=== PATIENT | female | born 1960 | race American Indian/Alaskan Native ===

== ENCOUNTER 2017-11-15 16:41 | Emergency (ER) | payer SELFPAY ==
[2017-11-15] MEDS ORDERED: ASPIRIN PO ONE (16:57)
[2017-11-15 17:15] LABS: Basophils # (Auto) 0.1 K/mm3 (0.0-0.1); Basophils % (Auto) 0.9 % (0.0-1.8); Eosinophils # (Auto) 0.1 K/mm3 (0.0-0.4); Hematocrit 37.1 % (30.3-42.9); Hemoglobin 12.9 gm/dl (10.1-14.3); Lymphocytes # (Auto) 2.2 K/mm3 (1.2-5.4); Lymphocytes % (Auto) 31.5 % (13.4-35.0); Mean Corpuscular HGB Conc 35 % (30-34); Mean Corpuscular Hemoglobin 29 pg (28-32); Mean Corpuscular Volume 84 fl (79-97); Monocytes # (Auto) 0.3 K/mm3 (0.0-0.8); Monocytes % (Auto) 4.2 % (0.0-7.3); Platelet Count 211 K/mm3 (140-440); Red Blood Count 4.42 M/mm3 (3.65-5.03); Red Cell Distribution Width 14.5 % (13.2-15.2)
[2017-11-15 17:30] LABS: BUN/Creatinine Ratio 15; Blood Urea Nitrogen 15 mg/dL (7-17); Calcium 9.2 mg/dL (8.4-10.2); Hemolysis Index 4
[2017-11-15] MEDS ORDERED: TYLENOL PO ONE (21:46)
[2017-11-15] MEDS ORDERED: NITROSTAT SL ONE (21:46)
[2017-11-15] MEDS ORDERED: APRESOLINE IV ONE (21:46)
--- NOTE | 2017-11-15 22:16 | XRay Report ---
FINAL REPORT PROCEDURE: XR CHEST 1V AP TECHNIQUE: Chest radiograph anteroposterior view. CPT 42101 HISTORY: dyspnea COMPARISON: No prior studies are available for comparison. FINDINGS: Heart: Normal. Mediastinum/Vessels: Normal. Lungs/Pleural space: No infiltrate, effusion, or pneumothorax. Bony thorax: No acute osseous abnormality. Life support devices: None. IMPRESSION: No radiographic evidence of acute cardiopulmonary abnormality.
--- NOTE | 2017-11-15 22:57 | Cat Scan Report ---
FINAL REPORT PROCEDURE: CT ANGIO CHEST TECHNIQUE: Computerized tomographic angiography of the chest was performed after the IV injection of iodinated nonionic contrast including image processing. The image data was postprocessed using 2-dimensional multiplanar reformatted (MPR) and 3-dimensional (MIP and/or volume rendered) techniques. HISTORY: chest pain COMPARISON: No prior studies are available for comparison. FINDINGS: Heart and pericardium: Heart is enlarged. No pericardial effusion or thickening. Thoracic aorta: No aneurysm or dissection. Pulmonary vasculature: Normal. Lymph nodes: 10 millimeter short axis subcarinal lymph node. Lungs: Normal. Pleural space: No effusion, thickening, or pneumothorax. Musculoskeletal structures: No significant abnormality. Upper abdominal structures: No significant abnormality. IMPRESSION: No evidence of pulmonary emboli
[2017-11-15] MEDS ORDERED: PROTONIX IV ONE (23:27)
--- NOTE | 2017-11-16 00:04 | Emergency Department Report ---
HPI - General Chief Complaint: Chest Pain Time Seen by Provider: 11/15/17 20:14 - HPI HPI: The patient is a 57-year-old female with a history of hypertension, whom presents for evaluation of chest pain. The patient reports on and off chest pain for the past 6 days, sharp in quality, radiating from the right side of the chest to the left chest, that sounds radiating to the right and left neck, jaw, and arms. She states that her pain has been moderate in severity and is exacerbated with movement. The patient denies fever, neck pain, parasthesias, dyspnea, cough, hemoptysis, palpitations, dizziness, syncope, unilateral leg swelling, calf muscle pain. Patient also denies cocaine or other stimulant use , history of DVT or PE, recent immobilization, or history of cancer. ED Past Medical Hx - Past Medical History Hx Hypertension: Yes - Surgical History Additional Surgical History: HERNIA X2 TUBAL HEMRRHOIDS - Social History Smoking Status: Never Smoker Substance Use Type: Alcohol - Medications Home Medications: Home Medications Medication Instructions Recorded Confirmed Last Taken Type Atenolol 50 PO DAILY 11/15/17 Unknown History Omeprazole Magnesium [PriLOSEC Otc] 20 mg PO QDAY #14 tablet. 11/16/17 Unknown Rx metroNIDAZOLE [Flagyl] 500 mg PO Q12HR #14 tab 11/16/17 Unknown Rx ED Review of Systems ROS: Stated complaint: CHEST PAIN Other details as noted in HPI Constitutional: denies: fever ENT: denies: throat or neck pain Respiratory: denies: cough, shortness of breath Cardiovascular: reports chest pain Endocrine: denies unexplained weight loss or gain Gastrointestinal: denies: abdominal pain, nausea Genitourinary: denies: dysuria Musculoskeletal: denies: leg swelling Skin: denies: rash Neurological: denies: headache Hematological/Lymphatic: denies: easy bleeding or easy bruising Psych: denies sadness or hopelessness Physical Exam - Physical Exam Vital Signs: Vital Signs 11/15/17 11/15/17 11/15/17 16:52 18:03 19:29 Temperature 98.8 F 98.3 F Pulse Rate 67 63 64 Respiratory 18 16 20 Rate Blood Pressure 159/102 Blood Pressure 150/91 149/95 [Left] O2 Sat by Pulse 100 99 97 Oximetry 11/15/17 11/15/17 21:07 23:14 Temperature Pulse Rate 63 66 Respiratory 20 18 Rate Blood Pressure Blood Pressure 156/99 137/95 [Left] O2 Sat by Pulse 95 Oximetry Physical Exam: General: well-nourished, well-developed, no acute distress Head: Normocephalic, atraumatic Eyes: normal sclera ENT: Mucous membranes are pink and moist Neck: trachea midline, neck supple, No neck stiffness, no cervical adenopathy Respiratory: Breath sounds equal bilaterally, no wheezing, rales, or rhonchi Cardio: S1 and S2 present, no murmurs, rubs, gallops, capillary refill is brisk Abdomen: Normoactive bowel sounds, soft abdomen, no rigidity, no guarding or rebound tenderness Chest WALL/Back: No tenderness to palpation of the chest wall, no CVA tenderness with percussion Musc: No pitting edema Skin: No rash Neuro: no facial drooping, normal speech Psych: Normal affect ED Course Vital Signs 11/15/17 11/15/17 11/15/17 16:52 18:03 19:29 Temperature 98.8 F 98.3 F Pulse Rate 67 63 64 Respiratory 18 16 20 Rate Blood Pressure 159/102 Blood Pressure 150/91 149/95 [Left] O2 Sat by Pulse 100 99 97 Oximetry 11/15/17 11/15/17 21:07 23:14 Temperature Pulse Rate 63 66 Respiratory 20 18 Rate Blood Pressure Blood Pressure 156/99 137/95 [Left] O2 Sat by Pulse 95 Oximetry ED Medical Decision Making - Lab Data Result diagrams: 11/15/17 17:03 11/15/17 17:03 - Medical Decision Making The patient was seen and examined by myself. The patient is placed on a terminal supervisor and continuous pulse ox. On initial evaluation, the patient was found to be in no distress. EKG was negative for findings suggestive of acute cardiac infarct. Labs and imaging are obtained. The patient was given pain medicine. Chest x-ray is negative for pneumothorax, focal consolidation, pulmonary vascular congestion, pleural effusion, or other obvious acute cardiopulmonary disease process. Lab results were non-concerning including levels of troponin, WBC, hemoglobin, hematocrit, electrolytes, renal function. The patient was reevaluated and reported that their symptoms were markedly improved. As the patient has a ESTEFANIA risk score less than 2, and a CT angiogram of the chest negative for pulmonary embolism or aortic injury, the patient is at low risk of ACS, pulmonary emboli, or Aortic dissection etiology of her symptoms. The patient is stable for discharge with outpatient follow-up. The patient is given follow-up and return instructions. The patient expressed understanding and agreed with the plan. The patient is discharged in stable condition. Critical care attestation.: If time is entered above; I have spent that time in minutes in the direct care of this critically ill patient, excluding procedure time. ED Disposition Clinical Impression: Acute chest pain, Hypertensive urgency Disposition: TO HOME OR SELFCARE Is pt being admited?: No Does the pt Need Aspirin: No Condition: Stable Instructions: Chest Pain (ED), Hypertension (ED) Prescriptions: metroNIDAZOLE [Flagyl] 500 mg PO Q12HR #14 tab Omeprazole Magnesium [PriLOSEC Otc] 20 mg PO QDAY #14 tablet. Referrals: DIAMANTE PINEDO MD [Staff Physician] - 3-5 Days Time of Disposition: 00:01
[2017-11-16] MEDS ORDERED: APRESOLINE IV ONE (00:55)
[2017-11-16] MEDS ORDERED: APRESOLINE ONE (00:55)
[2017-11-16 02:12] VITALS: BP 148/82
== END 2017-11-16 02:13 | disposition home or self-care (01) ==
LOC: ED 16:41
DX: I16.0 Hypertensive urgency (principal); R07.9 Chest pain, unspecified; I10 Essential (primary) hypertension
CPT/HCPCS: 36415; 71045; 71275; 80048; 83880; 84484; 85025; 93005; 93010; 96374; 96375; 99285; C9113; J0360; Q9967